=== PATIENT | male | born 1985 | race American Indian/Alaskan Native ===

== ENCOUNTER 2017-11-08 22:38 | Emergency (ER) | payer OTHER ==
[2017-11-08 22:49] VITALS: BP 115/61
[2017-11-09] MEDS ORDERED: MOTRIN PO ONE (01:59)
[2017-11-09] MEDS ORDERED: DECADRON IM ONE (01:59)
--- NOTE | 2017-11-09 02:10 | Emergency Department Report ---
ED ENT HPI - General Chief complaint: Sore Throat Stated complaint: THROAT PAIN Time Seen by Provider: 11/09/17 01:58 Source: patient Mode of arrival: Ambulatory Limitations: No Limitations - History of Present Illness Initial comments: Patient returns for pharyngitis sore throat states she started amoxicillin 2 days ago prior remains the same requesting stronger antibiotic plan we'll give Decadron ibuprofen and change antibiotic to Augmentin , patient will follow with ENT in 2-3 days complaint: sore throat Onset/Timin -: week(s) Location: throat Severity: moderate Severity scale (0 -10): 4 Quality: sharp Consistency: intermittent Improves with: NSAID Worsens with: swallowing Associated Symptoms: fever, pain with swallowing, sore throat - Related Data Previous Rx's Medication Instructions Recorded Last Taken Type HYDROcodone/APAP 5-325 [Fontana 1 each PO Q6HR PRN #12 tablet 05/22/14 Unknown Rx 5-325 mg TAB] Hyoscyamine Subl [Levsin Sl] 0.125 mg SL Q4HR PRN #15 tablet 05/22/14 Unknown Rx Lansoprazole [Prevacid] 15 mg PO QDAY #30 cap 05/22/14 Unknown Rx Promethazine [Phenergan] 25 mg PO Q6H PRN #20 tablet 05/22/14 Unknown Rx Amoxicillin/K Clav Tab [Augmentin 1 tab PO Q12HR #20 tab 11/09/17 Unknown Rx 875 mg] Benzocaine/Menth/Cetylpyrd 8 each MM Q2H PRN #3 packet 11/09/17 Unknown Rx [Cepacol X Strength] Ibuprofen 800 mg PO TID PRN #30 tablet 11/09/17 Unknown Rx Allergies Allergy/AdvReac Type Severity Reaction Status Date / Time No Known Allergies Allergy Verified 05/22/14 17:33 ED Dental HPI - General Chief complaint: Sore Throat Stated complaint: THROAT PAIN Time Seen by Provider: 11/09/17 01:58 Source: patient Mode of arrival: Ambulatory Limitations: No Limitations - Related Data Previous Rx's Medication Instructions Recorded Last Taken Type HYDROcodone/APAP 5-325 [Fontana 1 each PO Q6HR PRN #12 tablet 05/22/14 Unknown Rx 5-325 mg TAB] Hyoscyamine Subl [Levsin Sl] 0.125 mg SL Q4HR PRN #15 tablet 05/22/14 Unknown Rx Lansoprazole [Prevacid] 15 mg PO QDAY #30 cap 05/22/14 Unknown Rx Promethazine [Phenergan] 25 mg PO Q6H PRN #20 tablet 05/22/14 Unknown Rx Amoxicillin/K Clav Tab [Augmentin 1 tab PO Q12HR #20 tab 11/09/17 Unknown Rx 875 mg] Benzocaine/Menth/Cetylpyrd 8 each MM Q2H PRN #3 packet 11/09/17 Unknown Rx [Cepacol X Strength] Ibuprofen 800 mg PO TID PRN #30 tablet 11/09/17 Unknown Rx Allergies Allergy/AdvReac Type Severity Reaction Status Date / Time No Known Allergies Allergy Verified 05/22/14 17:33 ED Review of Systems ROS: Stated complaint: THROAT PAIN Other details as noted in HPI Constitutional: fever. denies: chills Eyes: denies: eye pain, eye discharge, vision change ENT: throat pain Respiratory: denies: cough, shortness of breath, wheezing Cardiovascular: denies: chest pain, palpitations Endocrine: no symptoms reported Gastrointestinal: denies: abdominal pain, nausea, diarrhea Genitourinary: denies: urgency, dysuria Musculoskeletal: denies: back pain, joint swelling, arthralgia Skin: denies: rash, lesions Neurological: denies: headache, weakness, paresthesias Psychiatric: denies: anxiety, depression Hematological/Lymphatic: denies: easy bleeding, easy bruising ED Past Medical Hx - Past Medical History Previous Medical History?: No - Surgical History Hx Appendectomy: Yes - Social History Smoking Status: Unknown if ever smoked Substance Use Type: None - Medications Home Medications: Home Medications Medication Instructions Recorded Confirmed Last Taken Type HYDROcodone/APAP 5-325 [Fontana 1 each PO Q6HR PRN #12 tablet 05/22/14 Unknown Rx 5-325 mg TAB] Hyoscyamine Subl [Levsin Sl] 0.125 mg SL Q4HR PRN #15 tablet 05/22/14 Unknown Rx Lansoprazole [Prevacid] 15 mg PO QDAY #30 cap 05/22/14 Unknown Rx Promethazine [Phenergan] 25 mg PO Q6H PRN #20 tablet 05/22/14 Unknown Rx Amoxicillin/K Clav Tab [Augmentin 1 tab PO Q12HR #20 tab 11/09/17 Unknown Rx 875 mg] Benzocaine/Menth/Cetylpyrd 8 each MM Q2H PRN #3 packet 11/09/17 Unknown Rx [Cepacol X Strength] Ibuprofen 800 mg PO TID PRN #30 tablet 11/09/17 Unknown Rx ED Physical Exam - General Limitations: No Limitations General appearance: alert, in no apparent distress - Head Head exam: Present: atraumatic, normocephalic - Eye Eye exam: Present: normal appearance, PERRL, EOMI Pupils: Present: normal accommodation - Expanded ENT Exam Expanded Throat exam: Positive: tonsillar erythema, tonsillomegaly. Negative: tonsillar exudate, R peritonsillar mass, L peritonsillar mass - Neck Neck exam: Present: normal inspection, full ROM, lymphadenopathy. Absent: tenderness, meningismus, thyromegaly - Respiratory Respiratory exam: Present: normal lung sounds bilaterally. Absent: respiratory distress, wheezes, stridor, chest wall tenderness - Cardiovascular Cardiovascular Exam: Present: regular rate, normal rhythm, normal heart sounds. Absent: systolic murmur, diastolic murmur, rubs, gallop - GI/Abdominal GI/Abdominal exam: Present: soft, normal bowel sounds. Absent: distended, tenderness, guarding, rebound, rigid, organomegaly, mass, bruit, pulsatile mass , hernia - Rectal Rectal exam: Present: deferred - Extremities Exam Extremities exam: Present: normal inspection - Back Exam Back exam: Present: normal inspection - Neurological Exam Neurological exam: Present: alert, oriented X3, CN II-XII intact, normal gait, reflexes normal - Psychiatric Psychiatric exam: Present: normal affect, normal mood - Skin Skin exam: Present: warm, dry, intact, normal color. Absent: rash ED Course Vital Signs 11/08/17 11/08/17 22:36 22:46 Temperature 98.8 F 98.8 F Pulse Rate 76 76 Respiratory 16 18 Rate Blood Pressure 115/61 115/61 O2 Sat by Pulse 98 98 Oximetry ED Medical Decision Making - Medical Decision Making Change antibiotics to Augmentin Ibuprofen when necessary pain Cepacol throat lozenges follow up with ENT in 2-3 days patient verbalizes understanding and agreement with same DC to home in stable condition at this time Critical care attestation.: If time is entered above; I have spent that time in minutes in the direct care of this critically ill patient, excluding procedure time. ED Disposition Clinical Impression: Pharyngitis Qualifiers: Pharyngitis/tonsillitis etiology: unspecified etiology Qualified Code(s): J02.9 - Acute pharyngitis, unspecified Disposition: TO HOME OR SELFCARE Is pt being admited?: No Does the pt Need Aspirin: No Condition: Good Instructions: Pharyngitis (ED) Prescriptions: Amoxicillin/K Clav Tab [Augmentin 875 mg] 1 tab PO Q12HR #20 tab Benzocaine/Menth/Cetylpyrd [Cepacol X Strength] 8 each MM Q2H PRN #3 packet PRN Reason: pain Ibuprofen 800 mg PO TID PRN #30 tablet PRN Reason: pain fever Referrals: CHELA SLATER MD [Primary Care Provider] - 3-5 Days Forms: Work/School Release Form(ED) Time of Disposition: 02:17
== END 2017-11-09 02:28 | disposition home or self-care (01) ==
LOC: ED 22:38
DX: J02.9 Acute pharyngitis, unspecified (principal)
CPT/HCPCS: 96372; 99282; J1100